=== PATIENT | female | born 1975 | race Caucasian/White ===

== ENCOUNTER 2019-05-10 17:38 | Emergency (ER) | payer OTHER ==
[~2019-05-10] VITALS: Ht 157.5 cm; Wt 72.6 kg
[~2019-05-10 17:38] MED LIST: CALCIUM600 MG PO; CEPHALEXIN500 MG PO; IBUPROFEN800 MG PO; IRON325 M1 PO; KEFLEX500 MG PO; MULTIVITAMINS1 EAC7 PO; NITROFURANTOIN100 M1; NORCO 5-325 TA1 EACH PO; ONDANSETRON ODT8 MG PO; OXYCODONE HCL5 MG PO; OXYCODONE-ACET1 EAC1 PO; PERCOCET 10-321 EACH PO; PREDNISONE10 MG PO; PREDNISONE20 MG PO; PREDNISONE5 MG PO; PYRIDIUM200 MG PO; SULFAMETHOXAZO1 EAC1 PO; VITAMIN E100 UNI2 PO
[2019-05-10] MEDS ORDERED: OXYCODONE HCL5 MG PO (18:47)
== END 2019-05-10 19:16 | disposition home or self-care (01) ==
LOC: ED 17:38
DX: S43.402A Unspecified sprain of left shoulder joint, initial encounter (principal); S50.02XA Contusion of left elbow, initial encounter; Z90.710 Acquired absence of both cervix and uterus; F17.200 Nicotine dependence, unspecified, uncomplicated; Z90.49 Acquired absence of other specified parts of digestive tract; Z79.52 Long term (current) use of systemic steroids; Z79.899 Other long term (current) drug therapy; W18.30XA Fall on same level, unspecified, initial encounter
CPT/HCPCS: 73030; 73080; 99283-25; 99406